=== PATIENT | female | born 1990 | race Two or more races ===

== ENCOUNTER 2025-02-08 16:58 | Emergency (ER) | payer OTHER ==
[~2025-02-08] VITALS: Ht 165.1 cm; Wt 70.3 kg
[2025-02-08] MEDS ORDERED: MORPHINE SULFATE INJ 4 MG/ML DISP.SYRIN ONE (18:13)
[2025-02-08] MEDS ORDERED: ONDANSETRON HCL/PF 4 MG/2 ML VIAL ONE (18:13)
[2025-02-08 18:15] LABS: APPEARANCE,URINE CLEAR (CLEAR); BLOOD, URINE Trace-lysed Ery/uL (NEGATIVE); LEUKOCYTE ESTERASE ,URINE Negative (NEGATIVE); NITRITE, URINE NEGATIVE (NEGATIVE); UGLUCOSE Negative (NEGATIVE)
[2025-02-08 18:17] LABS: ADD URINE CULTURE NO; SQUAMOUS EPITHELIAL CELL,UR Moderate /HPF (None Seen)
[2025-02-08] MEDS: MORPHINE SULFATE INJ 2 MG/ML DISP.SYRIN IV ONE (18:20)
[2025-02-08] MEDS: IV NS 0.9% 1,000 ML BAG IV ONE (18:20)
[2025-02-08] MEDS: ONDANSETRON HCL/PF 4 MG/2 ML VIAL IVP ONE (18:20)
[2025-02-08 18:24] LABS: PLATELET COUNT (AUTO) 220 K/uL (150-450); RED BLOOD CELL COUNT(AUTO) 4.40 MIL/uL (4.0-5.2); RED CELL DISTRIBUTION WIDTH 13.2 % (11.5-15.0); WHITE BLOOD COUNT (AUTO) 8.8 K/uL (4.3-11.0)
[2025-02-08 18:32] LABS: CALCIUM, SERUM 8.9 mg/dL (8.5-10.1); CREATININE 0.7 mg/dL (0.6-1.3); SODIUM SERUM 139.0 mmol/L (136-145); UREA NITROGEN, BLOOD 11.0 mg/dL (7-18)
[2025-02-08 18:38] LABS: ASPARTATE AMINOTRANSFERASE 21.0 U/L (15-37); TOTAL PROTEIN, SERUM 7.6 g/dL (6.4-8.2)
[2025-02-08] MEDS ORDERED: KETOROLAC TROMETHAMINE 15 MG/ML VIAL ONE (19:33)
[2025-02-08] MEDS: KETOROLAC TROMETHAMINE 15 MG/ML VIAL IV ONE (19:38)
[2025-02-08] MEDS ORDERED: IBUP-1490 PO (20:38)
[2025-02-08 20:43] VITALS: BP 108/69; TEMP 98.3; O2SAT 98
== END 2025-02-08 20:56 | disposition home or self-care (01) ==
LOC: ER 17:04
DX: N83.202 Unspecified ovarian cyst, left side (principal); R10.20 Pelvic and perineal pain unspecified side; Z87.442 Personal history of urinary calculi; Z90.49 Acquired absence of other specified parts of digestive tract; Z90.711 Acquired absence of uterus with remaining cervical stump
CPT/HCPCS: 99285; 74176; 96374; 96375; 96361; 85025; 80048; 83690; 80076; 81001; 36415; J1885; J2270; J2405; J7030